=== PATIENT | female | born 1950 | race Caucasian/White ===

== ENCOUNTER 2016-08-15 09:26 | Outpatient (CLI) | payer MEDICARE, OTHER ==
[2016-08-15 10:17] LABS: eGFR (African) > 60; eGFR (Non-African) > 60
== END 2016-08-15 09:27 ==
LOC: LAB 09:26
PROVIDERS: ATTEND Family Medicine
DX: I10 Essential (primary) hypertension (principal); R73.9 Hyperglycemia, unspecified
CPT/HCPCS: 36415; 80053; 80061; 83036

== ENCOUNTER 2017-12-17 09:06 | Outpatient (CLI) | payer MEDICARE, OTHER ==
[2017-12-17 09:44] LABS: eGFR (African) > 60; eGFR (Non-African) > 60
== END 2017-12-17 09:08 ==
LOC: LAB 09:06
PROVIDERS: ATTEND Family Medicine
DX: E11.9 Type 2 diabetes mellitus without complications (principal); I10 Essential (primary) hypertension
CPT/HCPCS: 36415; 80053; 83036

== ENCOUNTER 2019-02-10 09:31 | Outpatient (CLI) | payer MEDICARE, OTHER ==
[2019-02-10 10:54] LABS: eGFR (Non-African) > 60
[2019-02-10 10:55] LABS: HDL 46 mg/dL (>40)
[2019-02-11 09:28] LABS: A1C 6.5 % (<5.7)
== END 2019-02-10 09:33 ==
LOC: LAB 09:31
PROVIDERS: ATTEND Family Medicine
DX: E11.9 Type 2 diabetes mellitus without complications (principal); Z79.4 Long term (current) use of insulin
CPT/HCPCS: 36415; 80053; 80061; 82043; 83036